=== PATIENT | male | born 1960 | race Two or more races ===

== ENCOUNTER 2018-12-10 16:50 | Emergency (ER) | payer OTHER ==
[~2018-12-10] VITALS: Ht 177.8 cm; Wt 63.0 kg
[2018-12-10 19:03] VITALS: BP 110/58
== END 2018-12-10 19:04 | disposition home or self-care (01) ==
LOC: ER 16:52
DX: R05 Cough (principal); R22.1 Localized swelling, mass and lump, neck; R09.89 Other specified symptoms and signs involving the circulatory and respiratory systems
CPT/HCPCS: 71045; 82948; 93005; 99283